=== PATIENT | male | born 1995 | race Hispanic/Latino ===

== ENCOUNTER → 2021-08-07 | Day surgery (SDC) | payer OTHER ==
[~2021-08-07] MED LIST: ACETAMINOPHEN/CODEINE 300MG - 30MG TAB ONE; BUPIVACAINE HCL 0.5% INJ 30 ML VIAL INJ ONE; DEXAMETHASONE SOD PHOS INJ 4 MG/ML SDV ONE; EPHEDRINE SULFATE INJ 50 MG/ML VIAL ONE; FENTANYL CITRATE/PF 100MCG/2 ML INJ ONE; KETOROLAC TROMETHAMINE 30 MG/ML VIAL ONE; LIDOCAINE HCL 2% LOCAL INJ 5 ML SDV VIAL INJ ONE; MELOXICAM7.5 MG PO; MIDAZOLAM HCL 2 MG/2 ML VIAL ONE; ONDANSETRON HCL INJ 2MG/ML 2ML 2 MG/ML VIAL ONE; POVIDONE IODINE 0.05% 0.05 % ML PO ONE; PROPOFOL IV EMULSION 10 MG/ML 20 ML VIAL ONE; SEVOFLURANE INHAL SOLN 250 ML PEN BTL ONE; SODIUM CHLORIDE 0.9% 50ML 100 ML ONE
[2021-08-07 14:20] VITALS: BP 115/67
== END | disposition home or self-care (01) ==
LOC: OR 10:03
PROVIDERS: ATTEND Specialist
DX: M22.41 Chondromalacia patellae, right knee (principal); M23.41 Loose body in knee, right knee; S83.221A Peripheral tear of medial meniscus, current injury, right knee, initial encounter; M67.51 Plica syndrome, right knee; X58.XXXA Exposure to other specified factors, initial encounter; Y93.02 Activity, running; Y99.8 Other external cause status; Z01.812 Encounter for preprocedural laboratory examination; Z20.822 Contact with and (suspected) exposure to COVID-19
CPT/HCPCS: 29877; J0690; J1100; J1885; J2001; J2250; J2405; J2704; J3010; U0002